=== PATIENT | female | born 1955 | race Caucasian/White ===

== ENCOUNTER 2019-06-22 17:20 | Emergency (ER) | payer MEDICAID ==
[~2019-06-22] VITALS: Ht 165.1 cm; Wt 58.1 kg
--- NOTE | ~2019-06-22 | EKG ---
[place], [place] ELECTROCARDIOGRAM REPORT NAME: EL MEJIA UNIT #: [id number] ROOM: DOCTOR: SHEILA DRAFT REPORT BIRTHDATE: [birth year] [facility] Test Date: 2019-06-22 Test Time: 17:51:23 Pat Name: EL MEJIA Department: Room: Gender: F Varn[employer] Dipper: : 1955 Requested By: CATARINO SANTORO Order Number: [id number] Reading MD: Measurements Intervals [place] Rate: 99 P: 62 [place]: 132 QRS: -18 QRSD: 93 T: 61 QT: 569 QTc: 731 Interpretive Statements Sinus rhythm Right atrial enlargement Borderline left axis deviation Abnormal R-wave progression, early transition Prolonged QT interval No previous ECG available for comparison CM:EKGRPT:ELECTROCARDIOGRAM REPORT 1751 [id number] CATARINO GARBER DRAFT REPORT CATARINO SANTORO DO
[~2019-06-22 17:20] MED LIST: ALBUTEROL0.09 MG/A2 IH; ARICEPT10 MG PO; ARICEPT5 MG PO; ASPIRIN81 M1 PO; BACTROBAN CREAM15 GM T; CALCIUM + D 6001 TA1 PO; CALCIUM 600 + V1 TA1 PO; CIPRO500 MG PO; CLARITIN10 MG PO; CLINDAMYCIN HC300 MG PO; CLINDAMYCIN150 MG PO; DAILY VITAMIN PO; DONEPEZIL HYDROC5 MG PO; FLUOXETINE20 M1 PO; FLUOXETINE20 MG PO; FLUOXETINE40 MG PO; FOLIC ACID1 MG PO; HYDROXYCHLOROQ200 M1 PO; KLOR-CON 1010 MEQ PO; METHOTREXATE2.5 M1 PO; METHOTREXATE2.5 MG PO; MIRTAZAPINE15 MG PO; MOTRIN800 MG PO; MUCINEX ER600 MG PO; NAMENDA10 MG PO; PREDNISOLONE5 MG PO; PREDNISONE2.5 MG PO; PREDNISONE5 MG PO; PRILOSEC20 MG PO; PRILOSEC40 MG PO; RISPERDAL0.25 MG PO; TYLENOL W/CODEI1 TA2 PO; VENTOLIN 02.5 MG/3 M INH; VYTORIN 10 MG-41 TA2 PO; VYTORIN PO; ZITHROMAX Z PA250 MG PO
[2019-06-22 18:25] LABS: BASO % 0.4 % (0.0-1.0); EOS # 0.1 10*3/uL (0.0-0.4); EOS % 0.8 % (1.0-4.0); HEMATOCRIT 41.6 % (37.0-47.0); HEMOGLOBIN 13.4 g/dl (12.0-16.0); LYMPH # 1.4 10*3/uL (1.3-4.4); LYMPH % 17.8 % (27.0-41.0); MEAN CELL VOLUME 90.2 fl (81.0-99.0); MEAN CORPUSCULAR HGB 29.1 pg (27.0-31.0); MEAN CORPUSCULAR HGB CONC 32.2 g/dl (33.0-37.0); MEAN PLATELET VOLUME 9.3 fl (9.6-12.3); MONO # 0.5 10*3/uL (0.1-1.0); MONO % 6.8 % (3.0-9.0); NEUT # 5.6 10*3/uL (2.3-7.9); NEUT % 73.9 % (47.0-73.0); PLATELET COUNT AUTOMATED 186 10*3/uL (130-400); RED BLOOD COUNT 4.61 10*6/uL (4.10-5.10); RED CELL DISTRI WIDTH 14.9 % (0-14.5); WHITE BLOOD COUNT 7.6 10*3/uL (4.8-10.8)
[2019-06-22 18:38] LABS: BILIRUBIN NEGATIVE (NEGATIVE); BLOOD NEGATIVE (NEGATIVE); CLARITY SL CLOUDY (CLEAR); COLOR YELLOW (YELLOW); GLUCOSE NEGATIVE (NEGATIVE); KETONE NEGATIVE (NEGATIVE); LEUKO ESTERASE NEGATIVE (NEGATIVE); NITRITE NEGATIVE (NEGATIVE); PH 5.5 (5.0-9.0); SPECIFIC GRAVITY >= 1.030 (1.005-1.030); UROBILINOGEN 0.2 E.U./dl (0.2-1.0)
[2019-06-22 18:38] LABS: ACT PARTIAL THROMBO TIME 25.4 SECONDS (20.0-32.1)
[2019-06-22 18:45] LABS: BACTERIA 2+; EPITHELIAL CELLS TMTV; MUCOUS TRACE; WBC 0-2 wbc/hpf (0-5)
[2019-06-22 18:46] LABS: ALBUMIN 3.2 gm/dl (3.1-4.5); ALKALINE PHOSPHATASE 106 U/L (45-117); BUN 18 mg/dl (7-24); CHLORIDE 108 mmol/L (98-107); CREATININE 0.94 mg/dL (0.55-1.02); LIPASE 163 U/L (73-393); POTASSIUM 3.5 mmol/L (3.5-5.1); SGOT/AST 34 IU/L (3-35); SGPT/ALT 36 U/L (12-78); SODIUM 140 mmol/L (136-145); TOTAL PROTEIN 7.6 gm/dL (6.4-8.2); TROPONIN I < 0.015 ng/ml (<0.045)
[2019-06-22 23:13] VITALS: BP 142/62
== END 2019-06-23 01:27 | disposition short-term general hospital (02) ==
LOC: ED 17:20
PROVIDERS: Emergency Medicine
DX: R29.810 Facial weakness (principal); R53.1 Weakness; I25.10 Atherosclerotic heart disease of native coronary artery without angina pectoris; K21.9 Gastro-esophageal reflux disease without esophagitis; M19.90 Unspecified osteoarthritis, unspecified site; E78.00 Pure hypercholesterolemia, unspecified; Z88.0 Allergy status to penicillin; Z91.040 Latex allergy status; Z91.041 Radiographic dye allergy status; Z88.2 Allergy status to sulfonamides; Z88.8 Allergy status to other drugs, medicaments and biological substances; Z79.899 Other long term (current) drug therapy; Z79.82 Long term (current) use of aspirin

== ENCOUNTER 2021-02-22 20:17 | Emergency (ER) | payer MEDICAID ==
[2021-02-22 21:08] LABS: BASO % 0.6 % (0.0-1.0); EOS # 0.1 10*3/uL (0.0-0.4); EOS % 1.3 % (1.0-4.0); LYMPH # 1.4 10*3/uL (1.3-4.4); LYMPH % 22.3 % (27.0-41.0); MEAN CELL VOLUME 88.2 fl (81.0-99.0); MEAN CORPUSCULAR HGB 27.3 pg (27.0-31.0); MEAN CORPUSCULAR HGB CONC 30.9 g/dl (33.0-37.0); MONO # 0.5 10*3/uL (0.1-1.0); MONO % 8.4 % (3.0-9.0); NEUT # 4.2 10*3/uL (2.3-7.9); NEUT % 67.2 % (47.0-73.0); PLATELET COUNT AUTOMATED 253 10*3/uL (130-400); RED BLOOD COUNT 4.99 10*6/uL (4.10-5.10); RED CELL DISTRI WIDTH 16.8 % (0-14.5); WHITE BLOOD COUNT 6.2 10*3/uL (4.8-10.8)
[2021-02-22 21:24] LABS: ALBUMIN 2.6 gm/dl (3.1-4.5); ALKALINE PHOSPHATASE 125 U/L (45-117); BUN 16 mg/dl (7-24); CHLORIDE 106 mmol/L (98-107); POTASSIUM 2.9 mmol/L (3.5-5.1); SGOT/AST 26 IU/L (3-35); SGPT/ALT 26 U/L (12-78); SODIUM 141 mmol/L (136-145); TOTAL PROTEIN 7.1 gm/dL (6.4-8.2)
[2021-02-22 22:09] LABS: BILIRUBIN 2+ (Negative); BLOOD 1+ (Negative); CLARITY Turbid (Clear); COLOR Dark Yellow (Yellow); GLUCOSE Negative (Negative); KETONE Trace (Negative); LEUKO ESTERASE 2+ (Negative); NITRITE Negative (Negative); SPECIFIC GRAVITY >= 1.030 (1.001-1.030)
[2021-02-22 22:17] LABS: URINE AMPHETAMINES < 1000 (1000ng/ml); URINE BARBITURATES < 200 (200ng/ml); URINE BENZODIAZEPINES < 200 (200ng/ml); URINE CANNABINOIDS (THC) < 50 (50ng/ml); URINE COCAINE < 300 (300ng/ml); URINE METHADONE < 300 (300ng/ml); URINE OPIATES < 300 (300ng/ml)
[2021-02-22 22:20] LABS: URINE PHENCYCLIDINE < 25 (25ng/ml)
[2021-02-22 22:27] LABS: EPITHELIAL CELLS TNTC
[2021-02-22 22:28] LABS: WBC 21-30 wbc/hpf (0-5)
[2021-02-22 22:29] LABS: BACTERIA 1+
[2021-02-23 04:00] VITALS: BP 109/59
== END 2021-02-23 06:25 | disposition home or self-care (01) ==
LOC: ED 20:17
PROVIDERS: Internal Medicine
DX: N17.9 Acute kidney failure, unspecified (principal); E87.6 Hypokalemia; E88.09 Other disorders of plasma-protein metabolism, not elsewhere classified; Z91.040 Latex allergy status; Z91.041 Radiographic dye allergy status; Z88.0 Allergy status to penicillin; Z88.2 Allergy status to sulfonamides; Z88.1 Allergy status to other antibiotic agents; Z88.8 Allergy status to other drugs, medicaments and biological substances; Z79.899 Other long term (current) drug therapy; Z79.82 Long term (current) use of aspirin; Z90.711 Acquired absence of uterus with remaining cervical stump; Z98.890 Other specified postprocedural states

== ENCOUNTER 2021-06-13 12:16 | Inpatient (IN) | payer MEDICAID ==
[~2021-06-13] VITALS: Ht 152.4 cm; Wt 50.4 kg
[2021-06-13 12:25] VITALS: BP 126/74
[2021-06-13 13:06] LABS: BASO # 0.1 10*3/uL (0.0-0.1); BASO % 0.6 % (0.0-1.0); EOS # 0.2 10*3/uL (0.0-0.4); EOS % 1.5 % (1.0-4.0); HEMATOCRIT 44.1 % (37.0-47.0); LYMPH % 19.6 % (27.0-41.0); MEAN CELL VOLUME 88.6 fl (81.0-99.0); MEAN CORPUSCULAR HGB 27.5 pg (27.0-31.0); MEAN CORPUSCULAR HGB CONC 31.1 g/dl (33.0-37.0); MEAN PLATELET VOLUME 8.8 fl (9.6-12.3); MONO # 0.6 10*3/uL (0.1-1.0); MONO % 5.6 % (3.0-9.0); NEUT # 7.4 10*3/uL (2.3-7.9); NEUT % 72.4 % (47.0-73.0); PLATELET COUNT AUTOMATED 309 10*3/uL (130-400); RED BLOOD COUNT 4.98 10*6/uL (4.10-5.10); RED CELL DISTRI WIDTH 15.6 % (0-14.5); WHITE BLOOD COUNT 10.2 10*3/uL (4.8-10.8)
[2021-06-13 13:17] LABS: ACT PARTIAL THROMBO TIME 25.9 SECONDS (20.0-32.1)
[2021-06-13 13:23] LABS: ALBUMIN 2.8 gm/dl (3.1-4.5); ALKALINE PHOSPHATASE 137 U/L (45-117); BUN 8 mg/dl (7-24); CHLORIDE 107 mmol/L (98-107); CREATININE 0.74 mg/dL (0.55-1.02); LIPASE 110 U/L (73-393); POTASSIUM 4.1 mmol/L (3.5-5.1); SGOT/AST 14 IU/L (3-35); SGPT/ALT 18 U/L (12-78); SODIUM 141 mmol/L (136-145); TOTAL PROTEIN 7.9 gm/dL (6.4-8.2)
[2021-06-13 23:11] VITALS: BP 136/71
[2021-06-14] VITALS (8 sets, daily range): BP systolic 90–132; BP diastolic 46–73
[2021-06-14 06:34] LABS: BASO % 0.5 % (0.0-1.0); EOS # 0.2 10*3/uL (0.0-0.4); EOS % 2.4 % (1.0-4.0); LYMPH # 1.6 10*3/uL (1.3-4.4); LYMPH % 19.3 % (27.0-41.0); MEAN CELL VOLUME 87.1 fl (81.0-99.0); MEAN CORPUSCULAR HGB 27.1 pg (27.0-31.0); MEAN CORPUSCULAR HGB CONC 31.1 g/dl (33.0-37.0); MEAN PLATELET VOLUME 8.7 fl (9.6-12.3); MONO # 0.4 10*3/uL (0.1-1.0); MONO % 5.4 % (3.0-9.0); NEUT # 5.9 10*3/uL (2.3-7.9); PLATELET COUNT AUTOMATED 291 10*3/uL (130-400); RED BLOOD COUNT 5.05 10*6/uL (4.10-5.10); RED CELL DISTRI WIDTH 15.3 % (0-14.5); WHITE BLOOD COUNT 8.2 10*3/uL (4.8-10.8)
[2021-06-14 06:48] LABS: ALBUMIN 2.6 gm/dl (3.1-4.5); BUN 8 mg/dl (7-24); CHLORIDE 108 mmol/L (98-107); POTASSIUM 3.8 mmol/L (3.5-5.1); SODIUM 139 mmol/L (136-145)
[2021-06-14 06:54] LABS: ALKALINE PHOSPHATASE 132 U/L (45-117); CHOLESTEROL 174 mg/dL (<200); CREATININE 0.48 mg/dL (0.55-1.02); FREE T4 1.06 ng/dl (0.76-1.46); LDL CHOLESTEROL 112 mg/dL (9-159); SGOT/AST 16 IU/L (3-35); SGPT/ALT 16 U/L (12-78); TOTAL PROTEIN 7.6 gm/dL (6.4-8.2); TRIGLYCERIDES 81 mg/dl (<150)
[2021-06-15 02:53] VITALS: BP 102/72
[2021-06-15 07:01] VITALS: BP 96/51
[2021-06-15 08:39] VITALS: BP 92/63
[2021-06-15] MEDS ORDERED: MIRALAX POWDER17 G1 PO (10:53)
[2021-06-15] MEDS ORDERED: COLACE100 MG PO (10:54)
[2021-06-15 16:37] VITALS: BP 116/59
[2021-06-15 18:06] VITALS: BP 87/48
[2021-06-15 21:34] VITALS: BP 123/69
[2021-06-16] VITALS: BP 99/48
[2021-06-16 06:29] LABS: BUN 7 mg/dl (7-24); CHLORIDE 111 mmol/L (98-107); CREATININE 0.52 mg/dL (0.55-1.02); POTASSIUM 4.6 mmol/L (3.5-5.1); SODIUM 143 mmol/L (136-145)
[2021-06-16 07:59] LABS: BASO # 0.1 10*3/uL (0.0-0.1); BASO % 0.7 % (0.0-1.0); EOS # 0.2 10*3/uL (0.0-0.4); EOS % 2.2 % (1.0-4.0); HEMATOCRIT 44.5 % (37.0-47.0); LYMPH # 1.6 10*3/uL (1.3-4.4); MEAN CELL VOLUME 88.6 fl (81.0-99.0); MEAN CORPUSCULAR HGB 27.1 pg (27.0-31.0); MEAN CORPUSCULAR HGB CONC 30.6 g/dl (33.0-37.0); MEAN PLATELET VOLUME 8.9 fl (9.6-12.3); MONO # 0.5 10*3/uL (0.1-1.0); MONO % 7.4 % (3.0-9.0); NEUT # 4.5 10*3/uL (2.3-7.9); NEUT % 66.6 % (47.0-73.0); PLATELET COUNT AUTOMATED 309 10*3/uL (130-400); RED BLOOD COUNT 5.02 10*6/uL (4.10-5.10); RED CELL DISTRI WIDTH 15.6 % (0-14.5); WHITE BLOOD COUNT 6.7 10*3/uL (4.8-10.8)
[2021-06-16 08:00] VITALS: BP 112/63
[2021-06-16 12:30] VITALS: BP 119/56
[2021-06-16] MEDS ORDERED: LEVOTHYROXINE25 MCG PO (13:36)
== END 2021-06-16 15:25 | disposition home or self-care (01) | DRG 247 ==
LOC: ED 12:16 → EDHOLD 15:08 → 5E 15:08
PROVIDERS: Emergency Medicine; Registered Nurse; ADMIT Internal Medicine; ATTEND Internal Medicine
DX: K56.41 Fecal impaction (principal); E87.2 Acidosis; E43 Unspecified severe protein-calorie malnutrition; F03.90 Unspecified dementia, unspecified severity, without behavioral disturbance, psychotic disturbance, mood disturbance, and anxiety; Z86.73 Personal history of transient ischemic attack (TIA), and cerebral infarction without residual deficits; Z68.21 Body mass index [BMI] 21.0-21.9, adult; Z88.0 Allergy status to penicillin; Z88.2 Allergy status to sulfonamides; Z88.1 Allergy status to other antibiotic agents; Z91.041 Radiographic dye allergy status; Z91.040 Latex allergy status; Z88.8 Allergy status to other drugs, medicaments and biological substances; Z90.710 Acquired absence of both cervix and uterus; Z79.82 Long term (current) use of aspirin; Z79.899 Other long term (current) drug therapy